=== PATIENT | female | born 2000 | race Hispanic/Latino ===

== ENCOUNTER 2021-10-06 18:04 | Emergency (ER) | payer OTHER ==
[2021-10-06 18:22] VITALS: BP 134/97
[2021-10-06] MEDS ORDERED: LORazepam 2 MG/ML VIAL IM ONE (18:57)
--- NOTE | 2021-10-06 19:04 | Emergency Department Report ---
HPI - General Chief Complaint: Psych Time Seen by Provider: 10/06/21 18:47 - HPI HPI: The patient is a 21-year-old female present with a chief complaint of anxiety. The patient states she just rolled 1.5 hours to this hospital to see her father who was admitted. She states the father's girlfriend has manipulated the father so that the father now states he no longer wants to see the patient. Patient presents emotionally distraught and tearful from being unable to see her father. Patient is visibly shaking and crying. Patient has history of bipolar disorder ED Past Medical Hx - Past Medical History Previous Medical History?: Yes Hx GERD: Yes Hx Psychiatric Treatment: Yes (Bipolar) Additional medical history: DJD, Gastroparesis - Surgical History Past Surgical History?: No - Family History Family history: no significant - Social History Smoking Status: Current Every Day Smoker (Vape) Substance Use Type: None (Denies illicit drug use), Prescribed ED Review of Systems ROS: Stated complaint: ANXIETY/MENTAL HEALTH CONCERNS Other details as noted in HPI Constitutional: no symptoms reported Eyes: denies: eye pain ENT: denies: throat pain Respiratory: no symptoms reported Cardiovascular: denies: chest pain Endocrine: no symptoms reported Gastrointestinal: denies: abdominal pain Genitourinary: denies: dysuria Musculoskeletal: denies: back pain Neurological: denies: headache Psychiatric: anxiety Physical Exam - Physical Exam Vital Signs: Vital Signs 10/06/21 18:07 Temperature 98.6 F Pulse Rate 144 H Respiratory 22 Rate Blood Pressure 134/97 O2 Sat by Pulse 99 Oximetry Physical Exam: GENERAL: The patient is well-developed well-nourished female tearful and visibly shaking and tearful. Friend/family member at bedside HEENT: Normocephalic. Atraumatic. Extraocular motions are intact. Tearful NECK: Supple. Trachea midline CHEST/LUNGS: Clear to auscultation. There is no respiratory distress noted. HEART/CARDIOVASCULAR: Regular. There is no tachycardia. There is no gallop rub or murmur. ABDOMEN: Abdomen is soft, nontender. Patient has normal bowel sounds. There is no abdominal distention. SKIN: There is no rash. There is no edema. There is no diaphoresis. NEURO: The patient is awake, alert, and oriented. The patient is very anxious and tearful. The patient has no focal neurologic deficits. The patient has normal speech. Patient actively trying MUSCULOSKELETAL: There is no evidence of acute injury. ED Course Vital Signs 10/06/21 18:07 Temperature 98.6 F Pulse Rate 144 H Respiratory 22 Rate Blood Pressure 134/97 O2 Sat by Pulse 99 Oximetry ED Medical Decision Making - Lab Data Result diagrams: 10/06/21 19:11 10/06/21 19:11 Laboratory Tests 10/06/21 10/06/21 10/06/21 19:11 19:11 19:11 WBC 5.0 RBC 4.59 Hgb 13.9 Hct 42.1 MCV 92 MCH 30 MCHC 33 RDW 13.3 Plt Count 254 Lymph % (Auto) 37.9 H Stearns % (Auto) 8.4 H Eos % (Auto) 1.8 Baso % (Auto) Farrowing Manager Lymph # (Auto) 1.9 Stearns # (Auto) 0.4 Eos # (Auto) 0.1 Baso # (Auto) 0.1 Seg Neutrophils % 50.7 Seg Neutrophils # 2.5 Sodium 138 Potassium 3.4 L Chloride 101.8 Carbon Dioxide 22 Anion Gap 18 BUN 6 L Creatinine 0.7 Estimated GFR > 60 BUN/Creatinine Ratio 9 Glucose 110 H Calcium 8.7 TSH Free T4 HCG, Qual Urine Color Urine Turbidity Urine pH Ur Specific [place] Urine Protein Urine Glucose (UA) Urine Ketones Urine Blood Urine Nitrite Urine Bilirubin Urine Urobilinogen Ur Leukocyte Esterase Urine WBC (Auto) Urine RBC (Auto) U Epithel Cells (Auto) Urine Bacteria (Auto) Salicylates < 0.3 L Urine Opiates Screen Urine Methadone Screen Acetaminophen Ur Barbiturates Screen Ur Phencyclidine Scrn Ur Amphetamines Screen U Benzodiazepines Scrn Urine Cocaine Screen U Marijuana (THC) Screen Drugs of Abuse Note Plasma/Serum Alcohol 10/06/21 10/06/21 10/06/21 19:11 19:11 19:11 WBC RBC Hgb Hct MCV MCH MCHC RDW Plt Count Lymph % (Auto) [place] % (Auto) Eos % (Auto) Baso % (Auto) Lymph # (Auto) Stearns # (Auto) Eos # (Auto) Baso # (Auto) Seg Neutrophils % Seg Neutrophils # Sodium Potassium Chloride Carbon Dioxide Anion Gap BUN Creatinine Estimated GFR BUN/Creatinine Ratio Glucose Calcium TSH Free T4 HCG, Qual Negative Urine Color Urine Turbidity Urine pH Ur Specific [place] Urine Protein Urine Glucose (UA) Urine Ketones Urine Blood Urine Nitrite Urine Bilirubin Urine Urobilinogen Ur Leukocyte Esterase Urine WBC (Auto) Urine RBC (Auto) U Epithel Cells (Auto) Urine Bacteria (Auto) Salicylates Urine Opiates Screen Urine Methadone Screen Acetaminophen 5.0 L Ur Barbiturates Screen Ur Phencyclidine Scrn Ur Amphetamines Screen U Benzodiazepines Scrn Urine Cocaine Screen U Marijuana (THC) Screen Drugs of Abuse Note Plasma/Serum Alcohol < 0.01 10/06/21 10/06/21 10/06/21 19:11 20:44 20:44 WBC RBC Hgb Hct MCV MCH MCHC RDW Plt Count Lymph % (Auto) [place] % (Auto) Eos % (Auto) Baso % (Auto) Lymph # (Auto) Stearns # (Auto) Eos # (Auto) Baso # (Auto) Seg Neutrophils % Seg Neutrophils # Sodium Potassium Chloride Carbon Dioxide Anion Gap BUN Creatinine Estimated GFR BUN/Creatinine Ratio Glucose Calcium TSH 0.815 Free T4 1.10 HCG, Qual Urine Color Straw Urine Turbidity Clear Urine pH 9.0 H Ur Specific [place] 1.004 Urine Protein <15 mg/dl Urine Glucose (UA) Neg Urine Ketones Neg Urine Blood Neg Urine Nitrite Neg Urine Bilirubin Neg Urine Urobilinogen < 2.0 Ur Leukocyte Esterase Neg Urine WBC (Auto) 1.0 Urine RBC (Auto) 1.0 U Epithel Cells (Auto) 3.0 Urine Bacteria (Auto) 1+ Salicylates Urine Opiates Screen Negative Urine Methadone Screen Negative Acetaminophen Ur Barbiturates Screen Negative Ur Phencyclidine Scrn Negative Ur Amphetamines Screen Negative U Benzodiazepines Scrn Negative Urine Cocaine Screen Negative U Marijuana (THC) Screen Positive Drugs of Abuse Note Disclamer Plasma/Serum Alcohol - Differential Diagnosis Adjustment disorder, anxiety Critical care attestation.: If time is entered above; I have spent that time in minutes in the direct care of this critically ill patient, excluding procedure time. ED Disposition Clinical Impression: Adjustment disorder Disposition: 07 LEFT AGAINST MEDICAL ADVICE Is pt being admited?: No Does the pt Need Aspirin: No Condition: Undetermined Referrals: PRIMARY CARE, [Primary Care Provider] - 3-5 Days Forms: AMA Form Time of Disposition: 22:33 (Patient leaving AMA)
[2021-10-06 20:14] LABS: Blood Urea Nitrogen 6 mg/dL (7-17); Calcium 8.7 mg/dL (8.4-10.2); Hemolysis Index 22
[2021-10-06 20:15] LABS: BUN/Creatinine Ratio 9
[2021-10-06 20:28] LABS: Free T4 (Free Thyroxine) 1.1 ng/dL (0.76-1.46)
[2021-10-06 20:39] LABS: Basophils # (Auto) 0.1 K/mm3 (0.0-0.1); Eosinophils # (Auto) 0.1 K/mm3 (0.0-0.4); Eosinophils % (Auto) 1.8 % (0.0-4.3); Hematocrit 42.1 % (30.3-42.9); Hemoglobin 13.9 gm/dl (10.1-14.3); Lymphocytes # (Auto) 1.9 K/mm3 (1.2-5.4); Lymphocytes % (Auto) 37.9 % (13.4-35.0); Mean Corpuscular HGB Conc 33 % (30-34); Mean Corpuscular Volume 92 fl (79-97); Monocytes # (Auto) 0.4 K/mm3 (0.0-0.8); Monocytes % (Auto) 8.4 % (0.0-7.3); Platelet Count 254 K/mm3 (140-440); Red Blood Count 4.59 M/mm3 (3.65-5.03); Red Cell Distribution Width 13.3 % (13.2-15.2)
[2021-10-06 21:07] LABS: Bacteria,Urine 1+ /HPF (Negative); Bilirubin,Urine NEG (Negative); Blood,Urine NEG (Negative); Color,Urine Straw (Yellow); Protein,Urine <15 mg/dL mg/dL (Negative); Urobilinogen,Urine < 2.0 mg/dL (<2.0)
[2021-10-06 21:11] LABS: Amphetamine Screen,Urine Negative; Benzodiazepines Screen,Urine Negative; Cocaine Screen,Urine Negative; Methadone Screen,Urine Negative; Opiate Screen,Urine Negative
[2021-10-06 21:32] LABS: Cannabinoid Screen,Urine Positive
[2021-10-06] MEDS ORDERED: POTASSIUM CHLORIDE ER 20 MEQ TAB PO ONE (21:53)
== END 2021-10-06 22:30 | disposition left against medical advice (07) ==
LOC: ED 18:04
DX: F43.20 Adjustment disorder, unspecified (principal); F41.9 Anxiety disorder, unspecified; F17.200 Nicotine dependence, unspecified, uncomplicated; F31.9 Bipolar disorder, unspecified; Z79.899 Other long term (current) drug therapy
CPT/HCPCS: 36415; 80048; 80307; 81001; 84439; 84443; 84703; 85025; 96372; 99283; J2060; 80320; G0480